=== PATIENT | male | born 1945 | race Caucasian/White ===

== ENCOUNTER → 2024-01-19 07:32 | Outpatient (REF) | payer MEDICARE, OTHER, SELFPAY ==
[2024-01-19 09:33] LABS: PSA, Total - Diagnostic < 0.06 ng/ml (0.0-4.0)
== END ==
LOC: REG 07:32
PROVIDERS: ATTENDING PHYSICIAN Radiology Radiation Oncology; FAMILY PHYSICIAN Family Medicine
DX: C61 Malignant neoplasm of prostate (principal)
CPT/HCPCS: 36415; 84153

== ENCOUNTER → 2024-04-27 08:18 | Outpatient (REF) | payer MEDICARE, OTHER, SELFPAY ==
[2024-04-29 14:33] LABS: Lyme Antibody Screen, EIA Presump. Positive (Negative)
== END ==
LOC: REG 08:18
PROVIDERS: ATTENDING PHYSICIAN Internal Medicine; FAMILY PHYSICIAN Family Medicine
DX: R21 Rash and other nonspecific skin eruption (principal)
CPT/HCPCS: 36415; 86617; 86618

== ENCOUNTER → 2025-01-15 09:48 | Outpatient (REF) | payer MEDICARE, OTHER, SELFPAY ==
[2025-01-15 12:26] LABS: PSA, Total - Diagnostic < 0.06 ng/ml (0.0-4.0)
[2025-01-15 12:28] LABS: Testosterone, Total 16.8 ng/dl (72-623)
== END ==
LOC: REG 09:48
PROVIDERS: ATTENDING PHYSICIAN Radiology Radiation Oncology; FAMILY PHYSICIAN Family Medicine
DX: C61 Malignant neoplasm of prostate (principal)
CPT/HCPCS: 36415; 84153; 84403

== ENCOUNTER → 2025-09-14 13:07 | Outpatient (REF) | payer MEDICARE, OTHER, SELFPAY | LOC: RAD 13:07 | PROVIDERS: ATTENDING PHYSICIAN Nurse Practitioner Family; FAMILY PHYSICIAN Family Medicine | DX: M25.521 Pain in right elbow (principal) | CPT/HCPCS: 73080 ==